=== PATIENT | male | born 1960 | race Caucasian/White ===

== ENCOUNTER → 2016-09-28 | Outpatient (REF) | payer OTHER ==
[2016-09-28 11:40] LABS: MEAN CORPUSCULAR HEMOGLOBIN 32.9 pg (27.0-33.0); MEAN CORPUSCULAR HGB CONC 35.7 g/dl (32.0-36.5); MEAN CORPUSCULAR VOLUME 92.2 fl (80.0-96.0); WHITE BLOOD COUNT 5.9 K/mm3 (4.0-10.0)
[2016-09-28 11:46] LABS: ALBUMIN/GLOBULIN RATIO 1.03 (1.00-1.93); ALKALINE PHOSPHATASE 170 U/L (45-117); ALT/SGPT 37 U/L (12-78); ANION GAP 7 MEQ/L (8-16); AST/SGOT 34 U/L (15-37); BILIRUBIN,TOTAL 0.6 MG/DL (0.2-1.0); BLOOD UREA NITROGEN 12 MG/DL (7-18); CALCIUM LEVEL 9.4 MG/DL (8.5-10.1); CARBON DIOXIDE LEVEL 28 MEQ/L (21-32); CHLORIDE LEVEL 104 MEQ/L (98-107); CHOLESTEROL LEVEL 113 MG/DL (<200); CREATININE FOR GFR 1.16 MG/DL (0.70-1.30); GLOMERULAR FILTRATION RATE > 60.0 (>56); GLUCOSE, FASTING 86 MG/DL (70-105); POTASSIUM SERUM 4.6 MEQ/L (3.5-5.1); SODIUM LEVEL 139 MEQ/L (136-145); TOTAL PROTEIN 7.9 GM/DL (6.4-8.2); TRIGLYCERIDES LEVEL 92 MG/DL (<150)
== END ==
LOC: M SFHCPLAZ 09:09
PROVIDERS: ATTEND Family Medicine
DX: B18.2 Chronic viral hepatitis C (principal); E78.5 Hyperlipidemia, unspecified

== ENCOUNTER → 2017-03-08 | Outpatient (CLI) | payer BC, OTHER ==
--- NOTE | 2017-03-08 08:50 | REP ---
Clinical: Chronic hepatitis C Technique: Ray scale ultrasound using curved array transducer. Findings: The liver and pancreas are normal in contour, size, and echogenicity without focal hepatic or pancreatic lesions identified. The gallbladder is normal without gallstones, wall thickening or pericholecystic fluid. No biliary ductal dilatation is appreciated, and the common bile duct measures 4.9 mm diameter. The right kidney is normal in reniform shape without hydronephrosis and measures 11.4 x 6.1 x 4.5 cm. No ascites. Visualized portions of the abdominal aorta normal. Impression: Normal right upper quadrant and gallbladder abdominal ultrasound. Signed by Eliecer Lugo MD 03/08/2017 08:41 A
== END ==
LOC: M RAD 07:19
PROVIDERS: ATTEND Family Medicine
DX: B18.2 Chronic viral hepatitis C (principal)

== ENCOUNTER → 2017-04-07 | Outpatient (CLI) | payer BC, OTHER | LOC: M LAB 14:34 | PROVIDERS: ATTEND Physician Assistant | DX: B18.2 Chronic viral hepatitis C (principal) ==

== ENCOUNTER → 2017-09-22 | Outpatient (REF) | payer OTHER ==
[2017-09-22 12:12] LABS: HEMATOCRIT 41.9 % (42.0-52.0); HEMOGLOBIN 14.9 g/dl (14.0-18.0); MEAN CORPUSCULAR HEMOGLOBIN 32.3 pg (27.0-33.0); MEAN CORPUSCULAR HGB CONC 35.6 g/dl (32.0-36.5); MEAN CORPUSCULAR VOLUME 90.7 fl (80.0-96.0); PLATELET COUNT, AUTOMATED 217 10^3/uL (150-450); RED BLOOD COUNT 4.62 10^6/uL (4.30-6.10); RED CELL DISTRIBUTION WIDTH 11.7 % (11.5-14.5); WHITE BLOOD COUNT 5.3 10^3/uL (4.0-10.0)
[2017-09-22 12:32] LABS: INR 1.03; PROTHROMBIN TIME 13.6 SECONDS (12.4-14.5)
[2017-09-22 12:48] LABS: ALBUMIN 4.2 GM/DL (3.2-5.2); ALKALINE PHOSPHATASE 205 U/L (45-117); ALPHA FETOPROTEIN TUMOR QUANT 3.1 NG/ML (<8.1); ALT/SGPT 32 U/L (12-78); ANION GAP 6 MEQ/L (8-16); AST/SGOT 33 U/L (7-37); BILIRUBIN,TOTAL 0.5 MG/DL (0.2-1.0); BLOOD UREA NITROGEN 13 MG/DL (7-18); CALCIUM LEVEL 9.1 MG/DL (8.5-10.1); CARBON DIOXIDE LEVEL 30 MEQ/L (21-32); CHLORIDE LEVEL 104 MEQ/L (98-107); CHOLESTEROL LEVEL 133 MG/DL (<200); CHOLESTEROL RISK RATIO 2.607 (<5); CREATININE FOR GFR 0.96 MG/DL (0.70-1.30); GLOMERULAR FILTRATION RATE > 60.0 (>56); GLUCOSE, FASTING 79 MG/DL (70-100); HDL CHOLESTEROL 51 MG/DL (>40); LDL CHOLESTEROL 71.2 MG/DL (<100); NON-HDL-C 82 MG/DL; POTASSIUM SERUM 4.5 MEQ/L (3.5-5.1); SODIUM LEVEL 140 MEQ/L (136-145); TOTAL PROTEIN 7.7 GM/DL (6.4-8.2); TRIGLYCERIDES LEVEL 54 MG/DL (<150)
== END ==
LOC: M SFHCPLAZ 10:18
DX: B18.2 Chronic viral hepatitis C (principal); E78.5 Hyperlipidemia, unspecified

== ENCOUNTER → 2018-04-11 | Outpatient (CLI) | payer BC, OTHER | LOC: M RAD 06:35 | DX: B18.2 Chronic viral hepatitis C (principal) | CPT/HCPCS: 76705 ==

== ENCOUNTER → 2018-12-31 | Outpatient (CLI) | payer OTHER, BC ==
[2018-12-31 10:26] LABS: BASO # 0.1 10^3/uL (0.0-0.2); BASO % 1.1 % (0.0-1.0); EOS # 0.3 10^3/uL (0.0-0.50); EOS % 5.2 % (0.0-3.0); HEMATOCRIT 40.1 % (42.0-52.0); HEMOGLOBIN 14.5 g/dl (13.5-17.5); LYMPH # 1.7 10^3/uL (1.5-4.5); LYMPH % 30.6 % (24.0-44.0); MEAN CORPUSCULAR HEMOGLOBIN 32.3 pg (27.0-33.0); MEAN CORPUSCULAR HGB CONC 36.2 g/dl (32.0-36.5); MEAN CORPUSCULAR VOLUME 89.3 fl (80.0-96.0); MONO # 0.5 10^3/uL (0.0-0.8); MONO % 9.6 % (0.0-5.0); NEUTROPHILS # 2.9 10^3/uL (1.8-7.7); NEUTROPHILS % 53.3 % (36.0-66.0); PLATELET COUNT, AUTOMATED 214 10^3/uL (150-450); RED BLOOD COUNT 4.49 10^6/uL (4.30-6.10); WHITE BLOOD COUNT 5.4 10^3/uL (4.0-10.0)
[2018-12-31 14:44] LABS: ALBUMIN 3.8 GM/DL (3.2-5.2); ALT/SGPT 25 U/L (12-78); BILIRUBIN,TOTAL 0.7 MG/DL (0.2-1.0); BLOOD UREA NITROGEN 20 MG/DL (7-18); CALCIUM LEVEL 8.5 MG/DL (8.5-10.1); CARBON DIOXIDE LEVEL 30 MEQ/L (21-32); CHLORIDE LEVEL 106 MEQ/L (98-107); CREATININE FOR GFR 0.89 MG/DL (0.70-1.30); GAMMA GLUTAMYLTRANSPEPTIDASE 73 U/L (15-85); GLOMERULAR FILTRATION RATE > 60.0 (>56); GLUCOSE, FASTING 104 MG/DL (70-100); POTASSIUM SERUM 4.2 MEQ/L (3.5-5.1); PROSTATIC SPECIFIC AG MONITOR 1.78 NG/ML (< 4.00); SODIUM LEVEL 141 MEQ/L (136-145)
== END ==
LOC: M WUC 08:37
PROVIDERS: ATTEND Family Medicine
DX: K74.69 Other cirrhosis of liver (principal); Z86.19 Personal history of other infectious and parasitic diseases; N41.9 Inflammatory disease of prostate, unspecified

== ENCOUNTER → 2019-02-27 | Outpatient (CLI) | payer OTHER, BC ==
[2019-02-27 20:04] LABS: PLATELET COUNT, AUTOMATED 210 10^3/uL (150-450)
[2019-02-27 20:12] LABS: INR 1.11
[2019-02-27 20:13] LABS: PARTIAL THROMBOPLASTIN TIME 33.6 SECONDS (25.0-38.4)
== END ==
LOC: M WUC 15:36
PROVIDERS: ATTEND Physician Assistant
DX: Z01.812 Encounter for preprocedural laboratory examination (principal)